=== PATIENT | male | born 1980 | race Caucasian/White ===

== ENCOUNTER 2019-10-25 11:36 | Emergency (ER) | payer OTHER ==
[~2019-10-25] VITALS: Ht 172.7 cm; Wt 78.9 kg
[~2019-10-25 11:36] MED LIST: CYCLOBENZAPRINE10 MG PO; KETO10TA2 PO; ORPHENADRINE C100 MG PO
== END 2019-10-25 13:56 | disposition home or self-care (01) ==
LOC: ER 11:36
DX: M54.5 Low back pain (principal)